=== PATIENT | male | born 1985 | race Asian ===

== ENCOUNTER 2022-01-21 03:47 | Emergency (ER) | payer BC ==
[~2022-01-21] VITALS: Ht 165.1 cm; Wt 63.5 kg
[2022-01-21 04:55] VITALS: BP 148/97; TEMP 98.1
== END 2022-01-21 05:00 | disposition home or self-care (01) ==
LOC: ED 03:47
DX: S16.1XXA Strain of muscle, fascia and tendon at neck level, initial encounter (principal); S46.812A Strain of other muscles, fascia and tendons at shoulder and upper arm level, left arm, initial encounter; I16.0 Hypertensive urgency; X58.XXXA Exposure to other specified factors, initial encounter; Y92.89 Other specified places as the place of occurrence of the external cause; F17.210 Nicotine dependence, cigarettes, uncomplicated
CPT/HCPCS: 93005; 99282; J1885

== ENCOUNTER 2022-01-25 08:13 | Outpatient (CLI) | payer BC | END 2022-01-25 18:50 | disposition home or self-care (01) | LOC: RAD 08:13 | PROVIDERS: ATTEND Nurse Practitioner Family | DX: M25.512 Pain in left shoulder (principal); Z13.220 Encounter for screening for lipoid disorders; Z13.1 Encounter for screening for diabetes mellitus; I10 Essential (primary) hypertension ==